=== PATIENT | female | born 1970 | race Caucasian/White ===

== ENCOUNTER → 2016-04-25 | Day surgery (SDC) | payer BC, OTHER ==
[~2016-04-25] MED LIST: ATROVENT 0.03%30 ML; IRON1 TAB PO; PANTOPRAZOLE SO40 MG PO; PROAIR HFA8.5 GM INH; SUPER B COMPLEX1 CAP PO; ZYRTEC10 M1 PO
--- NOTE | ~2016-04-25 | OR ---
Unit #: [id number] #: [id number] Patient: MERLENE TORRES [id number] [address] [address] [id number] MR#: [id number] NAME: MERLENE TORRES ROOM: Date of Procedure: 04/25/2016 Admission Date: 04/25/2016 Surgeon: Marcus Santos M.D. : 1970 Attending Physician: Marcus Santos M.D. Primary Care Physician: Jv Bradford M.D. [facility] OPERATIVE NOTE PROCEDURE PERFORMED Cervical epidural steroid injection under x-ray guided needle placement. PREOPERATIVE DIAGNOSES 1. Acute cervical radiculitis. 2. Spinal stenosis, cervical spine. 3. Degenerative joint disease, cervical spine. 4. Degenerative disk disease, cervical spine. INDICATIONS FOR PROCEDURE The patient presents today status post 2 previous cervical approach epidural steroid injections for an acute radiculitis, which had failed to respond to conservative measures. She did very well and had approximately 100% relief, these occurred approximately 4 months ago. Over the ensuing 4 months she has had a crescendo pattern return of her pain, which has failed to respond to ongoing continuous conservative measures and has reached a point where she is uncomfortable and desires of a cervical epidural steroid injection. After discussing risks and benefits of proceeding today with cervical approach epidural steroid injection, the patient agreed this would be the appropriate course of action. DESCRIPTION OF PROCEDURE She was then taken to the operating room, where she was prepped and draped in a sterile manner. Standard monitors were applied. She refused all forms of sedation and cervical epidural space was accessed at the C5-C6 level using loss of resistance technique and x-ray guidance. Needle placement was confirmed with the injection of 2 mL of Omnipaque. There was good superior and inferior flow to the C5-C6 level needle placement. Total x-ray time for this procedure was 4 seconds. Following successful needle placement confirmation at the C5-C6 level. The patient received an injectate containing 4 mL of normal saline and 80 mg of methylprednisolone. She tolerated this procedure well. She was discharged home with followup instructions, which included an offer to return to this clinic as early as 08/01/2016 if we could be of further service to her. She was instructed if she was asymptomatic at the time of that scheduled visit to simply not keep that appointment and to follow up with this clinic or her referring or her primary care provider at such point in future, if we could be of further service to her. Dictated by... Marcus Santos M.D. Unit #: [id number] #: [id number] Patient: MERLENE TORRES G/modl TD: 04/26/2016 02:59 JOB #: [id number] [facility] OPERATIVE NOTE X Adam Santos MD X PROCEDURE OPERATIVE NOTE
== END | disposition home or self-care (01) ==
LOC: CCSC 10:14
DX: M50.10 Cervical disc disorder with radiculopathy, unspecified cervical region (principal); M48.02 Spinal stenosis, cervical region; M19.90 Unspecified osteoarthritis, unspecified site; Z88.0 Allergy status to penicillin; Z88.2 Allergy status to sulfonamides; Z88.8 Allergy status to other drugs, medicaments and biological substances; Z95.0 Presence of cardiac pacemaker; Z98.41 Cataract extraction status, right eye; Z98.42 Cataract extraction status, left eye; Z98.84 Bariatric surgery status; Z98.51 Tubal ligation status; Z98.890 Other specified postprocedural states
CPT/HCPCS: J1040; J2250